=== PATIENT | male | born 1945 | race Caucasian/White ===

== ENCOUNTER 2018-02-02 09:01 | Inpatient (IN) ==
[~2018-02-02 09:01] MED LIST: Bacitracin 50,000 UNIT, Polymyxin B Sulfate 500,000 UNIT, Sodium Chloride IRRigation 1,... IR ONE
[2018-02-02] MEDS ORDERED: *HR* Rocuronium Bromide 50 MG/5 ML VIAL ONE ×2 (09:10→12:36)
[2018-02-02] MEDS ORDERED: Lidocaine -MPF 4% 5 ML AMPUL ONE (09:10)
[2018-02-02] MEDS ORDERED: Lidocaine -MPF 2% 2 ML VIAL ONE (09:10)
[2018-02-02] MEDS ORDERED: *HR* Succinylcholine 200 MG/10 ML VIAL IVP ONE (09:10)
[2018-02-02] MEDS ORDERED: *HR* Propofol 200 MG/20 ML VIAL IVP ONE (09:11)
[2018-02-02] MEDS ORDERED: *HR* FentaNYL (PF) 100 MCG/2 ML VIAL ONE (09:11)
[2018-02-02] MEDS ORDERED: *HR* Midazolam HCl 2 MG/2 ML VIAL ONE (09:12)
--- NOTE | 2018-02-02 09:15 | Anesthesia Evaluation PreOp ---
Date of Encounter: 02/02/18 Time of Encounter: 09:13 - Past History Planned Operation: PLIF L3-L5 Cardiac History: Hyperlipidemia Pulmonary History: Denies Any Significant HX VISITOR SERVICES ASSOCIATE History: Denies Any Significant HX Other Medical History: Diabetes Type II (prediabetes), Other (gastric ulcer) Anesthesia History: No Prior Anesthetic Complications, Past Anesthesia (burke shoulder, wide local excision malignant melanoma back, vasctomy, egd/colonoscopy) Medications and Allergies Allergy/AdvReac Type Severity Reaction Status Date / Time No Known Allergies Allergy Verified 01/21/18 09:40 - Meds/Allergy Pre-op Review Medications Reviewed: Yes Allergies Reviewed: Yes Beta Blockers on Current Med List: No Anesthesia Results - Labs Laboratory Tests 12/09/17 01/21/18 01/21/18 09:10 10:30 10:30 WBC 8.8 RBC 4.37 Hgb 13.9 Plt Count 185 PT INR APTT Sodium 142 Potassium 4.2 Chloride 107 Carbon Dioxide 27 BUN 19 Creatinine 1.10 Glucose 100 Est Mean Plasma Glucose Hemoglobin A1c 01/21/18 01/26/18 10:30 09:46 WBC RBC Hgb Plt Count PT 12.6 H INR 1.1 APTT 55.5 H Sodium Potassium Chloride Carbon Dioxide BUN Creatinine Glucose Est Mean Plasma Glucose 131 Hemoglobin A1c 6.2 H - Imaging Additional studies: Stress 10/16/17 Negative for ischemia EF 60% Anesthesia Exam O2 Sat Height 1.75 m Weight 90.718 kg - HEENT Pupil (Motor): Pupils equal, EOMI Mallampati: II Teeth: Normal Oral Opening: Greater than 3 - VISITOR SERVICES ASSOCIATE LOC: Oriented VISITOR SERVICES ASSOCIATE Motor: Normal RUE, Normal LUE, Normal RLE, Normal LLE, Normal Face VISITOR SERVICES ASSOCIATE Sensory: Normal: RUE, LUE, RLE, LLE, Face - Cardiac Rhythm: Regular - Pulmonary Breath Sounds: bilateral Clear Respiratory Effort: Symmetrical Anesthesia Assess/Plan ASA Score: 2
[2018-02-02] MEDS ORDERED: CeFAZolin Syr 2,000MG/20 ML 2,000 MG/20 ML SYRINGE IVPB ONE (09:29)
[2018-02-02] MEDS ORDERED: Ringers Solution, Lactated 1,000 ML IVC SCH ×2 (09:30→10:00)
[2018-02-02] MEDS ORDERED: Acetaminophen IV 1,000 MG/100 ML INFUS..BTL ONE (09:49)
[2018-02-02] MEDS ORDERED: Ondansetron 4 MG/2 ML VIAL IVP ONE (10:00)
[2018-02-02] MEDS ORDERED: *HR* OxyCODONE Immed Rel 5 MG TABLET PO PRN (10:00)
[2018-02-02] MEDS ORDERED: *HR* Promethazine 25 MG/ML VIAL IVP PRN (10:00)
[2018-02-02] MEDS ORDERED: *HR* Meperidine 25 MG/ML SYRINGE IVP PRN (10:00)
[2018-02-02] MEDS ORDERED: *HR* Remifentanil 1 MG VIAL IVP ONE ×2 (10:40→11:03)
--- NOTE | 2018-02-02 10:57 | History & Physical Report ---
Date of Encounter: 02/02/18 Time of Encounter: 10:56 24 Hour HP Update - Instructions Instructions: If the History and Physical is less than 30 days old and was completed prior to A.M. admission and or procedure and has NOT been updated on calendar day of procedure please complete this update prior to performing procedure. - Update Patient reports changes in Medical Condition: No Changes in examination, assessment, or condition: No Changes in Medication: No Preop tests/diagnostics Reviewed: Yes Pre-Op MRSA Screen: Negative Surgery Remains Indicated: Yes Consent for Planned Operative Procedure(s) Verified: Yes - Pre-Operative Checklist Preoperative Checklist Indicated: No Prophylactic Antibiotic Ordered: Yes Home Medications Include Beta Sonido: No Beta Sonido Taken Today (Day of Surgery): No Beta Sonido Taken Yesterday (Day Prior to Surgery): No Is VTE Prophylaxis Indicated?: Yes
[2018-02-02] MEDS ORDERED: *HR* HYDROmorphone 2 MG/ML SYRINGE ONE (11:10)
[2018-02-02] MEDS ORDERED: Dexamethasone 4 MG/ML VIAL ONE (11:26)
[2018-02-02] MEDS ORDERED: Ondansetron 4 MG/2 ML VIAL ONE (11:26)
[2018-02-02] MEDS ORDERED: EPHEDrine 50 MG/ML VIAL ONE (12:15)
--- NOTE | 2018-02-02 15:12 | Orthopedic Operative Note ---
Date of procedure: 02/02/18 Pre-op diagnosis: Spondylolisthesis, lumbar stenosis, lumbar radiculopathy Post-op diagnosis: same Operation/Findings: Posterior lumbar interbody fusion L3-L5: The patient successfully underwent general endotracheal anesthesia. The patient was given antibiotics prior to the start of the procedure. Compression boots and stockings were used for deep vein thrombosis prophylaxis. A Kim catheter was placed. Leads for neuro monitoring were placed on the upper and lower extremities. This included the cranium. The neuro monitoring personnel confirmed there were satisfactory readings prior to the start of the procedure. The patient was turned prone on the Froylan table. The back was prepped and draped in the usual sterile fashion. An incision was was marked and centered over the involved L3-L5 levels in the mid line. The incision was deepened through the lumbar fascia. Bovie cautery and Mccoy elevators were used to reflect the paraspinal musculature at the lateral extent of the transverse processes of the involved L3-L5 levels. Echo clamps were placed over the L4 and L5 spinous processes. An intraoperative lateral fluorograph was obtained. A conversation was held between the surgeon and radiologist and both confirmed we had the correct operative levels. We then placed pedicle screws in standard fashion with the aid of fluoroscopy and anatomic landmarks. Briefly a starter awl was used. A gearshift was subsequently used to enter the pilot plant research technician hole via a transpedicular route into the vertebral body. The pilot plant research technician hole was tapped with an undersized instrument, and subsequently six 6.5 x 45 mm pedicle screws were placed bila terally at the indicated L3, L4, and L5 levels. The screws were tested with the aid of the neurologic monitoring staff via pedicle screw stimulation. All reading suggested there was no significant cortical wall breech. The screws were also evaluated fluoro- graphically and appeared to be in satisfactory position. We then turned our attention to the decompression portion of the procedure. We removed the supraspinous and interspinous ligaments and subsequently the insertion of the ligamentum flavum on the undersurface of the proximal L4 lamina was dislodged with a curette. We then removed the ligamentum flavum as well as undercut the L4-L5 facets at this level to decompress the lateral recesses. We also performed a L4 laminectomy. After the decompression, which was over and above that which was required to place the interbody graft, the foramen and traversing roots at this L4-L5 level were found to be free and patent. We also took part of the medial facets in order to aid in the decompression. We then turned our attention to the L3-4 level were a similar decompression was performed including removal of ligamentum flavum, undercutting the L3-4 facets, doing partial medial facetectomies at this level. We then protected the neural elements including the thecal sac and traversing nerve root on the right at L4-5 with a dural retractor. We made an annulotomy into the L4- L5 disc space and then removed entire disc material using Pituitary instruments. We trialed various size grafts after the endplates were prepared for graft insertion. An 8 x 26 enter body graft fit well within the L4-L5 disc space. We obtained some bone from the right posterior superior iliac spine through us a separate incision and combined with this with the bone which we had saved from the laminectomies portion of the procedure. This autograft bone was first placed in the anterior portion of the L4-L5 disc space and additional bone was placed within the interbody graft spacer. We then placed the interbody graft spacer obliquely across the L4-L5 disc space towards the midline while protecting the neural elements with a root retractor. When the graft was found to be in satisfactory position the guide dog mobility instructor was removed. We then protected the neural elements with a dural retractor at the L3-4 level, made an annulotomy into the L3-4 disc space, removed entire disc material from L3-4, and trialed a 10 x 26 mm interbody graft which fit well we placed autograft bone in the anterior portion of the L3-4 disc space and then packed an interbody cage with bone and inserted it obliquely across the L3-4 L4 disc space. After this found to be in appropriate position the guide dog mobility instructor was removed. This left interbody grafts at L3-4 and L4-5. We then copiously irrigated the wound. We then dec orticated the L3, L4, and L5 transverse processes as well as the L3-4 and L4-5 facet joints of the involved L3-L5 levels to aid in the posterolateral fusion. We placed autograft bone in the lateral gutters over these regions. We then placed rods within the screw heads of the involved L3, L4, and L5 levels and first locked the distal screws and then subsequently locked the proximal screws so as to improve and reduce the spondylolisthesis previously seen. We then closed the wound in layers with 1 Vicryl for the fascia, 2-0 Vicryl. Subcutaneous tissue, and Dermabond was used for skin closure. Sterile dressings were placed over the wound. The patient was turned supine on a hospital bed and extubated. All sponge instruments and needle counts were correct at the end of the procedure. The patient tolerated the procedure well without complications. Anesthesia: GETA Surgeon: Keo Rich Jr Was there an primary teaching assistant present: No Estimated blood loss (cc): 120 Specimen: None Condition: stable Disposition: PACU
[2018-02-02] MEDS: *HR* HYDROmorphone (PF) 1 MG/ML SYRINGE IVP PRN ×3 (15:30→15:46)
--- NOTE | 2018-02-02 15:59 | Anesthesia Evaluation Post Op ---
Date of Encounter: 02/02/18 Time of Encounter: 15:59 - Vital Signs Vital Signs: Last Vital Signs Temp 97.6 F 02/02/18 15:50 Pulse 76 02/02/18 15:50 Resp 12 02/02/18 15:50 BP 129/61 02/02/18 15:50 Pulse Ox 96 02/02/18 15:50 - Lungs Lungs: Clear Ascult./Percussion - Airway Airway: Non-obstructed - Cardiovascular Regular Rate - Mental Status Mental Status: Alert & Oriented, Answers Appropriately - Pain Pain Scale: 8 (improved ) - Nausea Vomiting Nausea Vomiting: Not Present - Hydration Hydration: NPO - Discharge PostOp Status: Transfer Patient to floor
[2018-02-02] MEDS ORDERED: Acetaminophen 325 MG TABLET PO PRN (17:04)
[2018-02-02] MEDS ORDERED: Naloxone 0.4 MG/ML INJ IVP PRN (17:04)
[2018-02-02] MEDS ORDERED: Temazepam 15 MG CAPSULE PO PRN (19:14)
[2018-02-02] MEDS: Ondansetron 4 MG/2 ML VIAL IVP PRN (20:40)
[2018-02-03] MEDS: *HR* OxyCODONE Immed Rel 5 MG TABLET PO PRN ×5 (00:34→22:45)
[2018-02-03] MEDS ORDERED: Aspirin Enteric Coated 81 MG Tablet PO SCH (09:00)
[2018-02-03] MEDS: Ondansetron 4 MG/2 ML VIAL IVP PRN ×2 (09:02→17:59)
[2018-02-03] MEDS: Acetaminophen IV 1,000 MG/100 ML INFUS..BTL IVPB PRN ×2 (09:06→18:40)
[2018-02-03] MEDS ORDERED: tiZANidine 4 MG TABLET PO PRN (12:20)
[2018-02-03] MEDS ORDERED: *HR* Promethazine 25 MG/ML VIAL IVP PRN (12:20)
--- NOTE | 2018-02-03 13:25 | Orthopedics Progress Note ---
Date of Encounter: 02/03/18 Time of Encounter: 12:40 - Assessment and Plan (1) Spondylolisthesis Current Visit: Yes Status: Chronic Qualifiers: Spinal region: lumbar Qualified Code(s): M43.16 - Spondylolisthesis, lumbar region (2) Lumbar stenosis Current Visit: Yes Status: Chronic Qualifiers: Neurogenic claudication status: with neurogenic claudication Qualified Code(s): M48.062 - Spinal stenosis, lumbar region with neurogenic claudication (3) Lumbar radiculopathy Current Visit: Yes Status: Chronic (4) Status post lumbar spinal fusion Current Visit: Yes Status: Acute Subjective Principal diagnosis: Spondylolisthesis, lumbar stenosis, lumbar radiculopathy Interval history: POD#1 Date of procedure: 02/02/18 Pre-op diagnosis: Spondylolisthesis, lumbar stenosis, lumbar radiculopathy Post-op diagnosis: same Operation/Findings: Posterior lumbar interbody fusion L3-L5 The patient struggled with nausea and vomiting through the night. Improved with Zofran. Phenergan added as patient having difficulty with breakthrough nausea. Patient states he has not been able to work with therapy yet to know if symptoms are improved yet or not as they are most often noted with standing for periods of time. He does however note that he has not noticed the intense muscle spasms to his lower extremities he was experiencing preoperatively. Tizanidine added for additional pain control with hope of reducing opioid burden given patient's significant nausea and vomiting x3 per patient. Afebrile vital signs are stable. Dressing is clean dry and intact. LSO in place. Neurovascularly intact with regard to bilateral lower extremities. Fires all upper and lower extremity motor groups. Assessment :stable. Plan mobilize ,continue analgesics, discharge planning - (plan for 02/05). Objective Vital signs: Vital Signs Temp Pulse Resp BP Pulse Ox 02/03/18 10:47 97.8 F 74 16 117/70 99 02/03/18 06:28 98.4 F 76 16 105/57 93 02/03/18 04:02 98.2 F 70 15 103/53 91 02/02/18 23:44 97.6 F 70 17 116/55 97 02/02/18 19:50 98.2 F 75 16 126/74 96 02/02/18 19:44 76 17 116/63 95 02/02/18 18:49 98.2 F 62 16 128/76 96 02/02/18 17:45 98.2 F 88 18 135/77 97 02/02/18 17:21 97.9 F 79 15 144/82 97 02/02/18 16:43 97.8 F 67 16 129/71 97 02/02/18 16:10 97.4 F L 76 16 127/65 97 02/02/18 16:00 68 16 124/67 97 02/02/18 15:50 97.6 F 76 12 129/61 96 02/02/18 15:40 78 14 131/64 97 02/02/18 15:30 80 14 132/69 97 02/02/18 15:20 98.0 F 93 12 146/68 97 Intake and Output 02/02/18 02/03/18 02/03/18 23:59 07:59 15:59 Intake Total 100 / 100 200 / 200 Output Total 850 / 850 900 / 900 Balance -750 / -750 -900 / -900 200 / 200 Intake: IV Fluids 100 / 100 200 / 200 Ofirmev 1,000 mg/100 ml 1,000 100 / 100 mg In 100 ml @ 400 mls/hr IVPB Q6HR PRN Rx#:[id number] Ancef 2,000 MG In 0.9 % Sodium 100 / 100 100 / 100 Chloride 100 ML @ 200 mls/hr IVPB Q8H BEN Rx#:[id number] Output: Urine 850 / 850 Catheter 900 / 900 Other: Meal Dinner Weight 95.5 kg Patient Weight 02/03/18 23:59 Weight 95.5 kg - VTE Documentation of Mechanical Device: Graduated compression elastic hosiery Consult Discharge Plan - Plan Referrals: Eliot Ventura DO [Primary Care Provider] -
[2018-02-03] MEDS: Ringers Solution, Lactated 1,000 ML IVC SCH (14:50)
[2018-02-03] MEDS: Multivit/Ca/Min/Fe/FA 1 TAB TABLET PO SCH (14:51)
[2018-02-03] MEDS: Aspirin Enteric Coated 81 MG Tablet PO SCH (20:16)
[2018-02-04] MEDS: Ringers Solution, Lactated 1,000 ML IVC SCH ×4 (01:35→21:20)
[2018-02-04] MEDS: Acetaminophen IV 1,000 MG/100 ML INFUS..BTL IVPB PRN (01:37)
[2018-02-04] MEDS: *HR* OxyCODONE Immed Rel 5 MG TABLET PO PRN (05:15)
[2018-02-04] MEDS: Ondansetron 4 MG/2 ML VIAL IVP PRN (06:45)
[2018-02-04] MEDS ORDERED: Scopolamine Patch 1.5 MG PATCH.TD72 TD ONE (09:25)
[2018-02-04] MEDS: Multivit/Ca/Min/Fe/FA 1 TAB TABLET PO SCH (09:41)
--- NOTE | 2018-02-04 12:07 | Orthopedics Progress Note ---
Date of Encounter: 02/04/18 Time of Encounter: 12:07 - Assessment and Plan (1) Spondylolisthesis Current Visit: Yes Status: Chronic Qualifiers: Spinal region: lumbar Qualified Code(s): M43.16 - Spondylolisthesis, lumbar region (2) Lumbar stenosis Current Visit: Yes Status: Chronic Qualifiers: Neurogenic claudication status: with neurogenic claudication Qualified Code(s): M48.062 - Spinal stenosis, lumbar region with neurogenic claudication (3) Lumbar radiculopathy Current Visit: Yes Status: Chronic (4) Status post lumbar spinal fusion Current Visit: Yes Status: Acute Subjective Principal diagnosis: Spondylolisthesis, lumbar stenosis, lumbar radiculopathy Interval history: POD#2 Date of procedure: 02/02/18 Pre-op diagnosis: Spondylolisthesis, lumbar stenosis, lumbar radiculopathy Post-op diagnosis: same Operation/Findings: Posterior lumbar interbody fusion L3-L5 The patient struggled with nausea and vomiting improved however after receiving oxycodone noticed return of significant nausea despite scopolamine patch and Zofran. Patient states he has had resolution of preoperative symptoms. Afebrile vital signs are stable. Dressing is clean dry and intact. LSO present in room. Patient eating lunch. Neurovascularly intact with regard to bilateral lower extremities. Fires all upper and lower extremity motor groups. Assessment :stable. Plan mobilize ,continue analgesics, discharge planning - (plan for 02/05). Objective Vital signs: Vital Signs Temp Pulse Resp BP Pulse Ox 02/04/18 09:50 98.7 F 98 16 128/74 96 02/04/18 08:33 98.4 F 98 16 131/69 96 02/04/18 03:43 98.1 F 88 16 116/71 94 02/03/18 23:34 99.0 F 96 16 132/77 94 02/03/18 19:15 98.0 F 95 17 131/67 98 02/03/18 18:10 101.8 F H 116 20 125/67 100 02/03/18 14:18 98.1 F 83 16 121/74 99 Intake and Output 02/03/18 02/04/18 02/04/18 23:59 07:59 15:59 Intake Total 100 / 100 1100 / 1100 Output Total 1550 / 1550 Balance -1450 / -1450 1100 / 1100 Intake: IV Fluids 100 / 100 1100 / 1100 Lactated Ringers 1,000 ML @ 100 1000 / 1000 mls/hr IVC .Q10H BEN Rx#: [id number] Ofirmev 1,000 mg/100 ml 1,000 100 / 100 100 / 100 mg In 100 ml @ 400 mls/hr IVPB Q6HR PRN Rx#:[id number] Output: Urine 1550 / 1550 - Labs CBC & BMP: 02/04/18 18:24 02/04/18 18:24 - VTE Documentation of Mechanical Device: Graduated compression elastic hosiery Consult Discharge Plan - Plan Referrals: Eliot Ventura DO [Primary Care Provider] -
[2018-02-04] MEDS ORDERED: *HR* HYDROcodone/Acet 5/325 mg TABLET PO PRN (15:27)
[2018-02-04] MEDS ORDERED: Acetaminophen 325 MG TABLET PO PRN (16:34)
[2018-02-04 18:50] LABS: Basophils % 0.2 %; Eosinophils % 0.1 %; Hematocrit 30.8 % (37.5-50.1); Hemoglobin 10.3 g/dL (12.9-16.9); Lymphocytes # 0.9 K/mcL (0.6-4.6); Lymphocytes % 5.4 %; Mean Corpuscular HGB Conc 33.4 g/dL (31.6-35.5); Mean Corpuscular Hemoglobin 31.9 pg (28.0-33.3); Mean Corpuscular Volume 95.4 fL (83.0-100.0); Mean Platelet Volume 11.2 fL (9.4-12.4); Monocytes # 1.6 K/mcL (0.0-1.3); Monocytes % 9.9 %; Neutrophils # 13.8 K/mcL (1.6-8.9); Platelet Count 158 K/mcL (140-400); Red Blood Count 3.23 M/mcL (4.19-5.50); Red Cell Distribution Width 12.2 % (11.5-14.5); Segmented Neutrophils % 83.4 %
[2018-02-04 19:06] LABS: Alanine Aminotransferase 29 Units/L (7-52); Albumin 3.3 g/dL (3.5-5.7); Albumin/Globulin Ratio 1.2 (1.1-2.2); Alkaline Phosphatase 49 Units/L (34-104); Aspartate Amino Transferase 57 Units/L (13-39); BUN/Creatinine Ratio 12 (6-26); Bilirubin,Total 0.8 mg/dL (0.3-1.0); Blood Urea Nitrogen 13 mg/dL (8-23); Calcium 8.8 mg/dL (8.6-10.3); Carbon Dioxide 29 mEq/L (23-29); Chloride 102 mEq/L (98-107); Globulin 2.7 g/dL (2.4-3.5); Glucose 132 mg/dL (70-105); Osmolality,Calculated 286 (280-300); Sodium 137 mEq/L (136-145); eGFR For Non-African Americans > 60 (> 60)
[2018-02-04] MEDS: Psyllium 1 PACKET POWD.PACK PO SCH (21:15)
[2018-02-04] MEDS: Famotidine 20 MG TABLET PO SCH (21:16)
[2018-02-04] MEDS: Aspirin Enteric Coated 81 MG Tablet PO SCH (21:16)
[2018-02-04] MEDS: *HR* HYDROcodone/Acet 5/325 mg TABLET PO PRN (23:32)
[2018-02-05] MEDS: Famotidine 20 MG TABLET PO SCH (07:56)
[2018-02-05] MEDS: Psyllium 1 PACKET POWD.PACK PO SCH (07:56)
[2018-02-05] MEDS: Multivit/Ca/Min/Fe/FA 1 TAB TABLET PO SCH (07:58)
--- NOTE | 2018-02-05 08:10 | Orthopedics Progress Note ---
Date of Encounter: 02/05/18 Time of Encounter: 09:30 - Assessment and Plan (1) Spondylolisthesis Current Visit: Yes Status: Chronic Qualifiers: Spinal region: lumbar Qualified Code(s): M43.16 - Spondylolisthesis, lumbar region (2) Lumbar stenosis Current Visit: Yes Status: Chronic Qualifiers: Neurogenic claudication status: with neurogenic claudication Qualified Code(s): M48.062 - Spinal stenosis, lumbar region with neurogenic claudication (3) Lumbar radiculopathy Current Visit: Yes Status: Chronic (4) Status post lumbar spinal fusion Current Visit: Yes Status: Acute (5) Constipation Current Visit: Yes Status: Chronic Qualifiers: Constipation type: unspecified constipation type Qualified Code(s): K59.00 - Constipation, unspecified (6) Nausea & vomiting Current Visit: Yes Status: Resolved Qualifiers: Vomiting type: unspecified Vomiting Intractability: non-intractable Qualified Code(s): R11.2 - Nausea with vomiting, unspecified Subjective Principal diagnosis: Spondylolisthesis, lumbar stenosis, lumbar radiculopathy Interval history: POD#2 Date of procedure: 02/02/18 Pre-op diagnosis: Spondylolisthesis, lumbar stenosis, lumbar radiculopathy Post-op diagnosis: same Operation/Findings: Posterior lumbar interbody fusion L3-L5 The patient struggled with nausea and vomiting improved however after receiving oxycodone noticed return of significant nausea despite scopolamine patch and Zofran. Patient states he has had resolution of preoperative symptoms. Patient tolerating [place] well - prescription provided for discharge. patient provided Scop patch rx for discharge as well Low grade fevers - encouraged IS vital signs are stable since episode last night KUB reveals constipation - encouraged continued clears and soft foods as well as PO hydration Patient continues passing gas Dressing is clean dry and intact. LSO in place. Sitting in chair - spouse at side Neurovascularly intact with regard to bilateral lower extremities. Fires all upper and lower extremity motor groups. Assessment :stable, improving Plan mobilize - therapy would like to work on stairs again this afternoon Continue analgesics Discharge planning - (plan for today 02/05) - home after evaluation by PT, lumbar films, repeat labs, and Dr. Rich review. Objective Vital signs: Vital Signs Temp Pulse Resp BP Pulse Ox 02/05/18 06:38 99.1 F 84 16 144/75 93 12/21/18 04:03 98.1 F 72 12 121/73 94 02/05/18 00:39 97.8 F 82 12 142/81 97 02/05/18 00:26 98.2 F 88 12 109/69 98 02/04/18 19:48 99.0 F 87 14 143/76 93 02/04/18 18:18 101.2 F H 100 16 157/79 93 02/04/18 16:30 98.3 F 107 16 155/73 91 02/04/18 09:50 98.7 F 98 16 128/74 96 02/04/18 08:33 98.4 F 98 16 131/69 96 Intake and Output 02/04/18 02/05/18 02/05/18 23:59 07:59 15:59 Intake Total 0 / 0 Output Total 300 / 300 250 / 250 Balance -300 / -300 -250 / -250 Intake: Oral 0 / 0 Output: Urine 300 / 300 250 / 250 Other: # Voids 1 Weight 94 kg Patient Weight 02/05/18 23:59 Weight 94 kg - Labs CBC & BMP: 02/05/18 10:21 02/05/18 10:21 Labs: Abnormal lab results WBC 16.5 K/mcL (4.3-11.1) H 02/04/18 18:24 RBC 3.23 M/mcL (4.19-5.50) L 02/04/18 18:24 Hgb 10.3 g/dL (12.9-16.9) L 02/04/18 18:24 Hct 30.8 % (37.5-50.1) L 02/04/18 18:24 Neutrophils # 13.8 K/mcL (1.6-8.9) H 02/04/18 18:24 Monocytes # 1.6 K/mcL (0.0-1.3) H 02/04/18 18:24 Glucose 132 mg/dL (70-105) H 02/04/18 18:24 AST 57 Units/L (13-39) H 02/04/18 18:24 Serum Total Protein 6.0 g/dL (6.4-8.9) L 02/04/18 18:24 Albumin 3.3 g/dL (3.5-5.7) L 02/04/18 18:24 - VTE Documentation of Mechanical Device: Graduated compression elastic hosiery Consult Discharge Plan - Plan Referrals: Eliot Ventura DO [Primary Care Provider] - Prescriptions: Docusate Sodium [Colace] 100 mg PO BID 5 Days #10 capsule HYDROcodone/Acet 5/325 mg [[place] 5-325 mg] 1 tab PO Q4-6H PRN 7 Days #40 tab PRN Reason: Severe Pain Scopolamine Patch [Transderm-Scop] 1.5 mg TD Q72H 6 Days #2 patch.[id number]
--- NOTE | 2018-02-05 08:10 | Discharge Summary ---
Orders not resulted at time of discharge: Pending orders 02/02/18 12:20 XR fluoroscopy <1 hr [XR] Routine Date of Encounter: 02/05/18 Time of Encounter: 09:41 - Discharge Diagnosis (1) Spondylolisthesis Priority: Primary Status: Chronic Qualifiers: Spinal region: lumbar Qualified Code(s): M43.16 - Spondylolisthesis, lumbar region (2) Lumbar stenosis Priority: Primary Status: Chronic Qualifiers: Neurogenic claudication status: with neurogenic claudication Qualified Code(s): M48.062 - Spinal stenosis, lumbar region with neurogenic claudication (3) Lumbar radiculopathy Priority: Primary Status: Chronic (4) Status post lumbar spinal fusion Priority: Primary Status: Acute (5) Nausea & vomiting Priority: Secondary Status: Resolved Qualifiers: Vomiting type: unspecified Vomiting Intractability: non-intractable Qualified Code(s): R11.2 - Nausea with vomiting, unspecified (6) Constipation Priority: Secondary Status: Chronic Qualifiers: Constipation type: unspecified constipation type Qualified Code(s): K59.00 - Constipation, unspecified - Hospital Course Hospital course: Mr. Fernández is a 72 year old male status post Date of procedure: 02/02/18 Pre-op diagnosis: Spondylolisthesis, lumbar stenosis, lumbar radiculopathy Post-op diagnosis: same Operation/Findings: Posterior lumbar interbody fusion L3-L5 - Time Spent with Patient Total time spent providing and/or coordinating discharge services: - Discharge Medications Prescriptions: Docusate Sodium [Colace] 100 mg PO BID 5 Days #10 capsule HYDROcodone/Acet 5/325 mg [[place] 5-325 mg] 1 tab PO Q4-6H PRN 7 Days #40 tab PRN Reason: Severe Pain Scopolamine Patch [Transderm-Scop] 1.5 mg TD Q72H 6 Days #2 patch.[id number] Home Medications: Aspirin [Adult Aspirin Regimen] 81 mg PO DAILY 02/02/18 [History] Multivitamin [One-Daily Multi-Vitamin] 1 tab PO DAILY 02/02/18 [History] Simvastatin [Zocor] 20 mg PO HS 02/02/18 [History] Docusate Sodium [Colace] 100 mg PO BID 5 Days #10 capsule 02/05/18 [Rx] HYDROcodone/Acet 5/325 mg [[place] 5-325 mg] 1 tab PO Q4-6H PRN 7 Days #40 tab 02/05/18 [Rx] Scopolamine Patch [Transderm-Scop] 1.5 mg TD Q72H 6 Days #2 patch.td72 02/05/18 [Rx] Allergies/Adverse Reactions: Allergy/AdvReac Type Severity Reaction Status Date / Time No Known Allergies Allergy Verified 02/02/18 10:44 Date of admission: 02/02/18 16:15 Primary care physician: Eliot Ventura DO Consults: 02/02/18 17:04 Consult to Occupational Therapy [CONS] Routine Comment: Evaluate, develop and implement POC Reason for Consult: Postoperative rehabilitation Does patient have active BEDREST order?: No Is patient medically & hemodynamically stable?: Yes Patient assessed for mobility or mobilized this visit?: No Consult to Physical Therapy [CONS] Routine Comment: Evaluate, develop and implement POC Reason for Consult: Postoperative rehabilitation Does patient have active BEDREST order?: No Is patient medically & hemodynamically stable?: Yes Patient assessed for mobility or mobilized this visit?: No Consult to Spine Navigator [CONS] [CONS] Routine Discharging clinician: Keo Rich Jr Anticipated date of discharge: 02/05/18 - VTE Documentation of Mechanical Device: Graduated compression elastic hosiery Labs on day of discharge: Labs from last 24 hours 02/04/18 02/04/18 18:24 18:24 WBC 16.5 H RBC 3.23 L Hgb 10.3 L Hct 30.8 L MCV 95.4 MCH 31.9 MCHC 33.4 RDW 12.2 Plt Count 158 MPV 11.2 Immature Gran % 1.0 Seg Neutrophils % 83.4 Lymphocytes % 5.4 Monocytes % 9.9 Eosinophils % 0.1 Basophils % 0.2 Neutrophils # 13.8 H Lymphocytes # 0.9 Monocytes # 1.6 H Eosinophils # 0.0 Basophils # 0.0 Sodium 137 Potassium 4.0 Chloride 102 Carbon Dioxide 29 BUN 13 Creatinine 1.07 Est GFR ( Amer) > 60 Est GFR (Non-Af Amer) > 60 BUN/Creatinine Ratio 12 Glucose 132 H Calculated Osmolality 286 Calcium 8.8 Total Bilirubin 0.8 AST 57 H ALT 29 Alkaline Phosphatase 49 Serum Total Protein 6.0 L Albumin 3.3 L Globulin 2.7 Albumin/Globulin Ratio 1.2 - Impressions ITS Impressions Lumbar Spine X-Ray 02/02/18 12:20 IMPRESSION: Vertebral alignment is maintained. Interval postoperative changes at L3-4 and L4-5. No hardware complication. D/ / Lincoln Tompkins MD / Lincoln Tompkins MD Interpreting Provider: Lincoln Tompkins MD X-Ray 02/04/18 16:54 IMPRESSION: Moderate gas and stool load throughout the colon suggests constipation. D/ / Keo Cantu MD / Keo Cantu MD Interpreting Provider: Keo Cantu MD - Additional Comments Vital Signs Temp Pulse Resp BP Pulse Ox 02/05/18 06:38 99.1 F 84 16 144/75 93 02/05/18 04:03 98.1 F 72 12 121/73 94 02/05/18 00:39 97.8 F 82 12 142/81 97 02/05/18 00:26 98.2 F 88 12 109/69 98 02/04/18 19:48 99.0 F 87 14 143/76 93 02/04/18 18:18 101.2 F H 100 16 157/79 93 02/04/18 16:30 98.3 F 107 16 155/73 91 Intake and Output 02/04/18 02/05/18 02/05/18 23:59 07:59 15:59 Intake Total 0 / 0 Output Total 300 / 300 250 / 250 Balance -300 / -300 -250 / -250 Intake: Oral 0 / 0 Output: Urine 300 / 300 250 / 250 Other: # Voids 1 Weight 94 kg Patient Weight 02/05/18 23:59 Weight 94 kg - Patient Status Disposition: Home, Self-Care Condition: Fair Functional capacity at discharge: uses cane/walker Overall status at discharge: patient is progressing back to baseline - Discharge Instructions Follow Up With: Eliot Ventura DO [Primary Care Provider] - - Diet and Activity Activity: as per physical therapy Diet: advance to your usual diet
[2018-02-05] MEDS: *HR* HYDROcodone/Acet 5/325 mg TABLET PO PRN (08:27)
[2018-02-05 10:36] LABS: Basophils % 0.1 %; Eosinophils # 0.1 K/mcL (0.0-0.6); Eosinophils % 0.4 %; Hematocrit 27.7 % (37.5-50.1); Hemoglobin 9.4 g/dL (12.9-16.9); Immature Granulocytes % 0.4 % (0-4); Lymphocytes # 0.9 K/mcL (0.6-4.6); Lymphocytes % 5.4 %; Mean Corpuscular HGB Conc 33.9 g/dL (31.6-35.5); Mean Corpuscular Hemoglobin 32.2 pg (28.0-33.3); Mean Corpuscular Volume 94.9 fL (83.0-100.0); Monocytes # 1.4 K/mcL (0.0-1.3); Monocytes % 8.7 %; Neutrophils # 13.5 K/mcL (1.6-8.9); Platelet Count 178 K/mcL (140-400); Red Blood Count 2.92 M/mcL (4.19-5.50); Red Cell Distribution Width 12.3 % (11.5-14.5)
[2018-02-05 10:57] LABS: BUN/Creatinine Ratio 11 (6-26); Blood Urea Nitrogen 12 mg/dL (8-23); Calcium 8.9 mg/dL (8.6-10.3); Carbon Dioxide 28 mEq/L (23-29); Chloride 100 mEq/L (98-107); Glucose 138 mg/dL (70-105); Osmolality,Calculated 278 (280-300); Potassium 3.9 mEq/L (3.5-5.1); Sodium 133 mEq/L (136-145); eGFR For Non-African Americans > 60 (> 60)
[2018-02-05 11:23] VITALS: BP 131/72
== END 2018-02-05 17:09 | disposition home or self-care (01) | DRG 455 ==
LOC: SAMDAY 09:01 → 3NENU 16:15
PROVIDERS: ADMIT Orthopaedic Surgery Orthopaedic Surgery of the Spine; ATTEND Orthopaedic Surgery Orthopaedic Surgery of the Spine